=== PATIENT | female | born 1990 | race Caucasian/White ===

== ENCOUNTER 2016-08-07 18:51 | Emergency (ER) | payer OTHER ==
[~2016-08-07] VITALS: Ht 160 cm; Wt 67.1 kg
[2016-08-07 18:53] VITALS: BP 134/79
== END 2016-08-07 20:28 | disposition left against medical advice (07) ==
LOC: ED 18:51
DX: Z53.21 Procedure and treatment not carried out due to patient leaving prior to being seen by health care provider (principal)